=== PATIENT | male | born 1985 | race American Indian/Alaskan Native ===

== ENCOUNTER 2018-06-09 06:43 | Emergency (ER) | payer SELFPAY ==
[2018-06-09] MEDS ORDERED: ASPIRIN PO ONE (07:10)
[2018-06-09 07:26] LABS: Hematocrit 45.5 % (35.5-45.6); Hemoglobin 15.3 gm/dl (11.8-15.2); Mean Corpuscular HGB Conc 34 % (32-34); Mean Corpuscular Volume 82 fl (84-94); Platelet Count 260 K/mm3 (140-440); Red Blood Count 5.56 M/mm3 (3.65-5.03)
[2018-06-09] MEDS ORDERED: NORCO 5/325 PO ONE (07:38)
[2018-06-09 07:53] LABS: BUN/Creatinine Ratio 9; Blood Urea Nitrogen 8 mg/dL (9-20); Calcium 9.3 mg/dL (8.4-10.2); Hemolysis Index 13
--- NOTE | 2018-06-09 09:00 | XRay Report ---
FINAL REPORT EXAM: XR CHEST ROUTINE 2V HISTORY: chest pain TECHNIQUE: Frontal and lateral views of the chest. PRIORS: None currently available. FINDINGS: Cardiac silhouette is within normal limits. There is no effusion. There is no pneumothorax. There is no consolidation. There are no suspicious osseous lesions. IMPRESSION: No acute cardiopulmonary findings.
[2018-06-09 09:04] LABS: Basophils % (Manual) 0 % (0.0-1.8); RBC Morphology Normal; Total Cells Counted 100
[2018-06-09 09:05] LABS: Platelet Estimate Consistent w Auto
[2018-06-09 09:12] VITALS: BP 137/75
--- NOTE | 2018-06-09 09:17 | Emergency Department Report ---
ED General Adult HPI - General Chief complaint: Chest Pain Stated complaint: CHEST PAIN Time Seen by Provider: 06/09/18 07:28 Source: patient, family Mode of arrival: Ambulatory Limitations: No Limitations - History of Present Illness Initial comments: Patient is a 32-year-old [place] male who is complaining of 2-3 days of midsternal chest pain. Patient states the pain is sharp and worse with he bends over and when he breathes. Patient denies any cough congestion in for the last month. There is no radiation of pain denies any diaphoresis nausea vomiting. Patient states the pain is sharp in nature and a 10 out of 10. Severity scale (0 -10): 10 - Related Data Previous Rx's Medication Instructions Recorded Last Taken Type HYDROcodone/APAP 5-325 [Economy 1 each PO Q4HR PRN #12 tablet 06/09/18 Unknown Rx 5/325] predniSONE [Deltasone] 20 mg PO QDAY #5 tab 06/09/18 Unknown Rx Allergies Allergy/AdvReac Type Severity Reaction Status Date / Time No Known Allergies Allergy Verified 06/09/18 07:48 ED Review of Systems ROS: Stated complaint: CHEST PAIN Other details as noted in HPI Comment: All other systems reviewed and negative ED Past Medical Hx - Past Medical History Previous Medical History?: No - Surgical History Past Surgical History?: Yes Additional Surgical History: jaw sx 2008 - Social History Smoking Status: Light Tobacco Smoker Substance Use Type: Marijuana - Medications Home Medications: Home Medications Medication Instructions Recorded Confirmed Last Taken Type HYDROcodone/APAP 5-325 [E[place]y 1 each PO Q4HR PRN #12 tablet 06/09/18 Unknown Rx 5/325] predniSONE [Deltasone] 20 mg PO QDAY #5 tab 06/09/18 Unknown Rx ED Physical Exam - General Limitations: No Limitations General appearance: alert, in no apparent distress - Head Head exam: Present: atraumatic, normocephalic - Eye Eye exam: Present: normal appearance - ENT ENT exam: Present: mucous membranes moist - Neck Neck exam: Present: normal inspection - Respiratory Respiratory exam: Present: normal lung sounds bilaterally, chest wall tend erness. Absent: respiratory distress, wheezes, rales, rhonchi - Cardiovascular Cardiovascular Exam: Present: regular rate, normal rhythm, normal heart sounds. Absent: systolic murmur, diastolic murmur, rubs, gallop - GI/Abdominal GI/Abdominal exam: Present: soft, normal bowel sounds. Absent: distended, tenderness, guarding, rebound, rigid - Rectal Rectal exam: Present: deferred - Extremities Exam Extremities exam: Present: normal inspection - Back Exam Back exam: Present: normal inspection - Neurological Exam Neurological exam: Present: alert, oriented X3 - Psychiatric Psychiatric exam: Present: normal affect, normal mood - Skin Skin exam: Present: warm, dry, intact, normal color. Absent: rash ED Course Vital Signs 06/09/18 06/09/18 06/09/18 07:06 07:31 07:45 Temperature 98.8 F Pulse Rate 86 87 74 Respiratory 22 20 23 Rate Blood Pressure 126/85 123/83 O2 Sat by Pulse 100 100 Oximetry 06/09/18 08:00 Temperature Pulse Rate 77 Respiratory 15 Rate Blood Pressure 137/75 O2 Sat by Pulse 98 Oximetry ED Medical Decision Making - Lab Data Result diagrams: 06/09/18 07:13 06/09/18 07:13 Lab Results 06/09/18 06/09/18 06/09/18 Range/Units 07:13 07:13 07:43 WBC 9.2 (4.5-11.0) K/mm3 RBC 5.56 H (3.65-5.03) M/mm3 Hgb 15.3 H (11.8-15.2) gm/dl Hct 45.5 (35.5-45.6) % MCV 82 L (84-94) fl MCH 28 (28-32) pg MCHC 34 (32-34) % RDW 14.0 (13.2-15.2) % Plt Count 260 (140-440) K/mm3 Eos % (Auto) Trouble Tracer Add Manual Diff Complete Total Counted 100 Seg Neuts % (Manual) 58.0 (40.0-70.0) % Band Neutrophils % 0 % Lymphocytes % (Manual) 14.0 (13.4-35.0) % Reactive Lymphs % (Man) 0 % Monocytes % (Manual) 9.0 H (0.0-7.3) % Eosinophils % (Manual) 19.0 H (0.0-4.3) % Basophils % (Manual) 0 (0.0-1.8) % Metamyelocytes % 0 % Myelocytes % 0 % Promyelocytes % 0 % Blast Cells % 0 % Nucleated RBC % Not Reportable Seg Neutrophils # Man 5.3 (1.8-7.7) K/mm3 Band Neutrophils # 0.0 K/mm3 Lymphocytes # (Manual) 1.3 (1.2-5.4) K/mm3 Abs React Lymphs (Man) 0.0 K/mm3 Monocytes # (Manual) 0.8 (0.0-0.8) K/mm3 Eosinophils # (Manual) 1.7 H (0.0-0.4) K/mm3 Basophils # (Manual) 0.0 (0.0-0.1) K/mm3 Metamyelocytes # 0.0 K/mm3 Myelocytes # 0.0 K/mm3 Promyelocytes # 0.0 K/mm3 Blast Cells # 0.0 K/mm3 WBC Morphology Not Reportable Hypersegmented Neuts Not Reportable Hyposegmented Neuts Not Reportable Hypogranular Neuts Not Reportable Smudge Cells Not Reportable Toxic Granulation Not Reportable Toxic Vacuolation Not Reportable Dohle Bodies Not Reportable Pelger-Huet Anomaly Not Reportable Julio Rods Not Reportable Platelet Estimate Consistent w auto Clumped Platelets Not Reportable Plt Clumps, EDTA Not Reportable Large Platelets Not Reportable Giant Platelets Not Reportable Platelet Satelliting Not Reportable Plt Morphology Comment Not Reportable RBC Morphology Normal Dimorphic RBCs Not Reportable Polychromasia Not Reportable Hypochromasia Not Reportable Poikilocytosis Not Reportable Anisocytosis Not Reportable Microcytosis Not Reportable Macrocytosis Not Reportable Spherocytes Not Reportable Pappenheimer Bodies Not Reportable Sickle Cells Not Reportable Target Cells Not Reportable Tear Drop Cells Not Reportable Ovalocytes Not Reportable Helmet Cells Not Reportable [place] Bodies Not Reportable Lacrosse Rings Not Reportable Baltic Cells Not Reportable Bite Cells Not Reportable Crenated Cell Not Reportable Elliptocytes Not Reportable Acanthocytes (Spur) Not Reportable Rouleaux Not Reportable Hemoglobin C Crystals Not Reportable Schistocytes Not Reportable Malaria parasites Not Reportable Juan Bodies Not Reportable Hem Pathologist Commnt No D-Dimer 48.73 (0-234) ng/mlDDU Sodium 141 (137-145) mmol/L Potassium 4.4 (3.6-5.0) mmol/L Chloride 101.7 (98-107) mmol/L Carbon Dioxide 29 (22-30) mmol/L Anion Gap 15 mmol/L BUN 8 L (9-20) mg/dL Creatinine 0.9 (0.8-1.5) mg/dL Estimated GFR > 60 ml/min BUN/Creatinine Ratio 9 % Glucose 80 (75-100) mg/dL Calcium 9.3 (8.4-10.2) mg/dL Troponin T < 0.010 (0.00-0.029) ng/mL - EKG Data -: EKG Interpreted by Me EKG shows normal: sinus rhythm, axis, intervals, QRS complexes, ST-T waves Rate: normal - EKG Data Interpretation: normal EKG - Radiology Data Chest x-ray is within normal limits - Medical Decision Making Patient's pain was well-controlled. Patient ruled out for LA pulmonary embolus pneumonia and pericarditis. Patient likely with pleurisy. Patient be discharged home with symptomatic relief. Critical care attestation.: If time is entered above; I have spent that time in minutes in the direct care of this critically ill patient, excluding procedure time. ED Disposition Clinical Impression: Pleurisy, Atypical chest pain Disposition: DC-01 TO HOME OR SELFCARE Is pt being admited?: No Does the pt Need Aspirin: No Condition: Stable Instructions: Pleurisy (ED), Costochondritis (ED) Referrals: KULWANT CERNA MD [Primary Care Provider] - 3-5 Days Time of Disposition: 09:16
== END 2018-06-09 09:32 | disposition home or self-care (01) ==
LOC: ED 06:43
DX: R07.89 Other chest pain (principal); R09.1 Pleurisy; F12.10 Cannabis abuse, uncomplicated; F17.200 Nicotine dependence, unspecified, uncomplicated
CPT/HCPCS: 36415; 71046; 80048; 84484; 85007; 85025; 85379; 93005; 93010